=== PATIENT | female | born 1990 | race Two or more races ===

== ENCOUNTER 2023-02-26 18:28 | Emergency (ER) | payer SELFPAY ==
[~2023-02-26] VITALS: Ht 167.6 cm; Wt 80.0 kg
[2023-02-26 18:54] VITALS: BP 132/87; PULSE 80; RESP 16; O2SAT 98
[2023-02-26] MEDS ORDERED: HYDROcodone-ACET 5/325MG TAB PO ONE (21:45)
[2023-02-26] MEDS ORDERED: NEOMYCIN-BACITRACIN-POLYM UNITDOSE PKG TOP OINT TOP ONE (21:45)
[2023-02-26] MEDS ORDERED: TETANUS-DIPTH-ACEL PERTUSSIS 0.5ML SYR Tdap IM ONE (21:45)
[2023-02-26] MEDS ORDERED: IBUP1TAB5 PO (21:52)
[2023-02-26] MEDS ORDERED: MUPI2OIN2 EX (21:52)
[2023-02-26] MEDS ORDERED: CYCL-839 PO (21:52)
[2023-02-26] MEDS ORDERED: DOXY-346 PO (21:52)
== END 2023-02-27 00:59 | disposition home or self-care (01) ==
LOC: ER 18:28
DX: S06.0XAA Concussion with loss of consciousness status unknown, initial encounter (principal); S13.8XXA Sprain of joints and ligaments of other parts of neck, initial encounter; S20.214A Contusion of middle front wall of thorax, initial encounter; S30.0XXA Contusion of lower back and pelvis, initial encounter; S70.01XA Contusion of right hip, initial encounter; S80.12XA Contusion of left lower leg, initial encounter; S40.022A Contusion of left upper arm, initial encounter; S40.021A Contusion of right upper arm, initial encounter; K80.20 Calculus of gallbladder without cholecystitis without obstruction; N83.202 Unspecified ovarian cyst, left side; N83.201 Unspecified ovarian cyst, right side; K76.0 Fatty (change of) liver, not elsewhere classified; I10 Essential (primary) hypertension; V89.2XXA Person injured in unspecified motor-vehicle accident, traffic, initial encounter; Y93.I9 Activity, other involving external motion; Y92.89 Other specified places as the place of occurrence of the external cause; Y99.8 Other external cause status
CPT/HCPCS: 70450; 71250; 72125; 73590; 74176